=== PATIENT | female | born 1965 | race Asian ===

== ENCOUNTER 2018-10-15 12:17 | Emergency (ER) | payer BC, OTHER ==
[~2018-10-15] VITALS: Ht 149.9 cm; Wt 52.2 kg
[~2018-10-15 12:17] MED LIST: FOLI1TAB6 PO; IBP800T PO
--- OUTSIDE RECORDS SUMMARY | 2018-10-15 12:22 | XMS REPORT ---
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 Name Role Phone ARAM SONI Unavailable Unavailable PROBLEMS Unknown Problems ALLERGIES No Known Allergies ENCOUNTERS Encounter Location Date Diagnosis [facility] [id number], [place] [phone] Feb, [facility] [id number] [place] [phone] Aug, Dental examination Z01.20 [facility] [id number] [address] Jan, 2009 IMMUNIZATIONS No Known Immunizations SOCIAL HISTORY Never Assessed REASON FOR VISIT PLAN OF CARE Activity Details Follow Up ariel Reason:restore VITAL SIGNS Blood pressure systolic 121 mmHg 2017-09-01 Blood pressure diastolic 66 mmHg 2017-09-01 MEDICATIONS Unknown Medications RESULTS No Results PROCEDURES Procedure Date Ordered Result Body Site COMP ORAL EVALUATION - NEW/EST PT Sep 01, 2017 INTRAORL-PERIAPICAL 1 FILM 69042 Sep 01, 2017 TOPICAL FLUORIDE VARNISH Sep 01, 2017 Periodontal maint procedures Sep 01, 2017 INTRAORL-PERIAPICAL EA ADD FILM Sep 01, 2017 INTRAORL-PERIAPICAL EA ADD FILM Sep 01, 2017 PANORAMIC FILM SEE ALSO CODE 12071 Sep 01, 2017 BITEWINGS - FOUR FILMS Sep 01, 2017 INSTRUCTIONS MEDICATIONS ADMINISTERED No Known Medications
--- OUTSIDE RECORDS SUMMARY | 2018-10-15 12:22 | XMS REPORT | Continuity of Care Document ---
Author Author [facility] Organization [facility] Address Unknown Phone Unavailable Allergies Active Description Code Type Severity Reaction Onset Reported/Identified Relationship to Patient Clinical Status Yes No Known Drug Allergies [id number] Drug Allergy Unknown N/A 01/30/2012 Medications There is no data. Problems Date Dx Coded Attending Type Code Diagnosis Diagnosed By 07/09/2014 GLADYS MALONE DO Ot 788.1 07/20/2014 Ot 788.1 09/29/2014 GLADYS MALONE DO Ot V76.12 02/13/2015 GLADYS MALONE DO Ot V76.12 Procedures There is no data. Results There is no data. Encounters ACCT No. Visit Date/Time Discharge Status Pt. Type Provider Facility Loc./Unit Complaint [id number] 09/15/2014 11:04:00 09/15/2014 23:59:59 CLS Outpatient GLADYS MALONE DO [facility] RAD [id number] 04/10/2014 13:14:00 07/09/2014 00:01:00 DIS Outpatient GLADYS MALONE DO [facility] LAB [id number] 09/15/2013 09:55:00 09/15/2013 23:59:59 CLS Outpatient [id number] 07/27/2013 11:20:00 07/27/2013 23:59:59 CLS Outpatient [id number] 05/25/2013 09:37:00 05/25/2013 23:59:59 CLS Outpatient [id number] 07/10/2014 00:00:00 Document Registration [id number] 03/16/2018 09:30:00 03/16/2018 23:59:59 CLS Outpatient [facility]
--- OUTSIDE RECORDS SUMMARY | 2018-10-15 12:22 | XMS REPORT ---
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 Role Phone YASMIN HADLEY Unavailable PROBLEMS Unknown Problems ALLERGIES No Known Allergies ENCOUNTERS Encounter Location Date Diagnosis [facility] [id number], [place] [phone] Feb, Dental examination Z01.20 [facility] [id number] [place] [phone] Aug, Dental examination Z01.20 [facility] [id number] [address] Jan, IMMUNIZATIONS No Known Immunizations SOCIAL HISTORY Never Assessed REASON FOR VISIT elba/lost filling PLAN OF CARE Activity Details Follow Up prn Reason:6 mth. Recall VITAL SIGNS Blood pressure systolic 110 mmHg 2018-03-16 Blood pressure diastolic 65 mmHg 2018-03-16 MEDICATIONS Unknown Medications RESULTS No Results PROCEDURES Procedure Date Ordered Result Body Site LTD ORAL EVALUATION - PROBLEM FOCUS March 16, 2018 INTRAORL-PERIAPICAL 1 FILM 01984 March 16, 2018 BITEWING - SINGLE FILM March 16, 2018 INSTRUCTIONS MEDICATIONS ADMINISTERED No Known Medications
[2018-10-15] MEDS ORDERED: TAMIFLU (12:41)
[2018-10-15] MEDS ORDERED: ONDANSETRON 4 MG (ZOFRAN) ORAL DISSOLVE TAB PO ONE (13:00)
[2018-10-15 13:32] LABS: BASOPHILS % (AUTO) 0 % (0-10); EOSINOPHILS % (AUTO) 1 % (0-10); HEMATOCRIT 39 % (35-52); HEMOGLOBIN 12.9 G/DL (11.5-16.0); LYMPHOCYTES # (AUTO) 1.3 X 10^3 (1.0-4.0); LYMPHOCYTES % (AUTO) 38 % (12-44); MEAN CORPUSCULAR HEMOGLOBIN 28 PG (25-34); MEAN CORPUSCULAR HGB CONC 33 G/DL (32-36); MEAN CORPUSCULAR VOLUME 85 FL (80-99); MEAN PLATELET VOLUME 10.4 FL (7.4-10.4); MONOCYTES # (AUTO) 0.4 X 10^3 (0.0-1.0); MONOCYTES % (AUTO) 13 % (0-12); NEUTROPHILS # (AUTO) 1.6 X 10^3 (1.8-7.8); NEUTROPHILS % (AUTO) 48 % (42-75); PLATELET COUNT 201 10^3/uL (130-400); WHITE BLOOD COUNT 3.3 10^3/uL (4.3-11.0)
--- NOTE | 2018-10-15 13:36 | Diagnostic Imaging Report ---
INDICATION: Influenza. TIME OF EXAM: 01:29 p.m. COMPARISON: Correlation is made with prior study from 01/30/2012. FINDINGS: The heart size is normal. The pulmonary vascularity is unremarkable. The lungs are clear. No infiltrate, effusion or pneumothorax is detected. IMPRESSION: No acute cardiopulmonary process is detected. Dictated by: Dictated on workstation # [id number]
[2018-10-15 13:49] LABS: BUN/CREATININE RATIO 11; CALCIUM 9.4 MG/DL (8.5-10.1); CARBON DIOXIDE 27 MMOL/L (21-32); CHLORIDE 104 MMOL/L (98-107); CREATININE SERUM 0.71 MG/DL (0.60-1.30); GFR ESTIMATED > 60; GLUCOSE 100 MG/DL (70-105); SODIUM 142 MMOL/L (135-145)
--- NOTE | 2018-10-15 14:06 | ED General ---
General Chief Complaint: Cough/Cold/Flu Symptoms Stated Complaint: N/V;FEVER Nursing Triage Note: Ambulatory to triage. Pt reports being diagnosed by PCP on 10/13/18 with influenza A. Pt curretnly prescribed tamiflu and cephalexin. Pt c/o vomiting that began last night. Pt reports not being able to keep meds or anything down at this time. Pt reports periodic fever and chills. Pt c/o cough that causes pain in the lungs. Nursing Sepsis Screen: No Definite Risk Source of Information: Patient Exam Limitations: No Limitations History of Present Illness Date Seen by Provider: Oct 15, 2018 Time Seen by Provider: 14:05 Initial Comments To ER with nausea and vomiting. She was diagnosed with influenza A on 10/13/18. She was given Tamiflu and Keflex. She began vomiting last night and is unable to keep anything down. Fevers are gone but the cough persists. Timing/Duration: 1-2 Days Severity: Moderate Associated Systoms: Nausea/Vomiting Allergies and Home Medications Allergies Coded Allergies: No Known Drug Allergies (Unverified , 01/30/12) Home Medications Ibuprofen 800 Mg Tab, 800 MG PO Q8HR PRN Prescribed by: HARRY CROUCH on 08/23/12 1024 Patient Home Medication List Home Medication List Reviewed: Yes Review of Systems Review of Systems Constitutional: see HPI EENTM: see HPI Respiratory: see HPI, cough Cardiovascular: no symptoms reported Gastrointestinal: nausea, vomiting Genitourinary: no symptoms reported Musculoskeletal: no symptoms reported Skin: no symptoms reported Psychiatric/Neurological: No Symptoms Reported Hematologic/Lymphatic: No Symptoms Reported (that was) Past Xgvktex-Nsjigy-Rcinni Hx Patient Social History Recent Foreign Travel: No Contact w/Someone Who Travel: No Recent Infectious Disease Expo: No Recent Hopitalizations: No Past Medical History Surgeries: No Respiratory: No Cardiac: No Neurological: No Reproductive Disorders: No Gastrointestinal: No Musculoskeletal: No Endocrine: No Psychosocial: No Blood Disorders: No Physical Exam Vital Signs Vital Signs - First Documented 10/15/18 12:22 Temp 96.5 Pulse 90 Resp 13 B/P (MAP) 127/81 (96) Pulse Ox 100 O2 Delivery Room Air Capillary Refill : Less Than 3 Seconds Height, Weight, BMI Height: 4'11.00" Weight: 115lbs. oz. 52.197387cq; BMI Method:Stated General Appearance: No Apparent Distress, WD/WN Eyes: Bilateral Eye Normal Inspection, Bilateral Eye PERRL, Bilateral Eye EOMI Neck: Full Range of Motion, Normal Inspection Respiratory: Normal Breath Sounds, No Accessory Muscle Use, No Respiratory Distress Cardiovascular: Regular Rate, Rhythm, Normal Peripheral Pulses Gastrointestinal: Non Tender, Soft Neurologic/Psychiatric: Alert, Oriented x3 Skin: Normal Color, Warm/Dry Progress/Results/Core Measures Suspected Sepsis Recent Fever Within 48 Hours: Yes Infection Criteria Present: None New/Unexplained Altered Menta: No Sepsis Screen: No Definite Risk SIRS Temperature:96.5 Pulse: 90 Respiratory Rate: 13 Laboratory Tests 10/15/18 13:24: White Blood Count 3.3L Blood Pressure 127 /81 Mean: 96 Laboratory Tests 10/15/18 13:24: Creatinine 0.71, Platelet Count 201 Results/Orders Lab Results Laboratory Tests Test 10/15/18 13:24 Range/Units White Blood Count 3.3 L 4.3-11.0 10^3/uL Red Blood Count 4.62 4.35-5.85 10^6/uL Hemoglobin 12.9 11.5-16.0 G/DL Hematocrit 39 35-52 % Mean Corpuscular Volume 85 80-99 FL Mean Corpuscular Hemoglobin 28 25-34 PG Mean Corpuscular Hemoglobin Concent 33 32-36 G/DL Red Cell Distribution Width 14.0 10.0-14.5 % Platelet Count 201 130-400 10^3/uL Mean Platelet Volume 10.4 7.4-10.4 FL Neutrophils (%) (Auto) 48 42-75 % Lymphocytes (%) (Auto) 38 12-44 % Monocytes (%) (Auto) 13 H 0-12 % Eosinophils (%) (Auto) 1 0-10 % Basophils (%) (Auto) 0 0-10 % Neutrophils # (Auto) 1.6 L 1.8-7.8 X 10^3 Lymphocytes # (Auto) 1.3 1.0-4.0 X 10^3 Monocytes # (Auto) 0.4 0.0-1.0 X 10^3 Eosinophils # (Auto) 0.0 0.0-0.3 10^3/uL Basophils # (Auto) 0.0 0.0-0.1 10^3/uL Sodium Level 142 135-145 MMOL/L Potassium Level 4.0 3.6-5.0 MMOL/L Chloride Level 104 98-107 MMOL/L Carbon Dioxide Level 27 21-32 MMOL/L Anion Gap 11 5-14 MMOL/L Blood Urea Nitrogen 8 7-18 MG/DL Creatinine 0.71 0.60-1.30 MG/DL Estimat Glomerular Filtration Rate > 60 BUN/Creatinine Ratio 11 Glucose Level 100 70-105 MG/DL Calcium Level 9.4 8.5-10.1 MG/DL My Orders Orders - CASSY DEL VALLE APRN Cbc With Automated Diff (10/15/18 12:49) Basic Metabolic Panel (10/15/18 12:49) Chest Pa/Lat (2 View) (10/15/18 12:49) Ondansetron Oral Dissolve Tab (Zofran (10/15/18 13:00) Medications Given in ED Current Medications Medications Dose Ordered Sig/Ally Route Start Time Stop Time Status Last Admin Dose Admin Ondansetron HCl 8 mg ONCE ONCE PO 10/15/18 13:00 10/15/18 13:01 DC 10/15/18 13:18 8 MG Vital Signs/I&O 10/15/18 12:22 Temp 96.5 Pulse 90 Resp 13 B/P (MAP) 127/81 (96) Pulse Ox 100 O2 Delivery Room Air Capillary Refill : Less Than 3 Seconds Blood Pressure Mean: 96 Departure Impression Primary Impression: Medication side effect Additional Impression: Influenza A Disposition: 01 HOME, SELF-CARE Condition: Stable Departure-Patient Inst. Decision time for Depature: 14:08 Referrals: MATILDA GOLDSTEIN DO (PCP/Family) Primary Care Physician Patient Instructions: General (DC) Add. Discharge Instructions: 1. Stop the Tamiflu 2. Continue Tylenol and Motrin for any fevers or chills. You may continue the cephalexin. You should also start using the ondansetron nausea medication as needed. All discharge instructions reviewed with patient and/or family. Voiced understanding. Scripts Ondansetron (Ondansetron Odt) 8 Mg Tab.rapdis 8 MG PO Q6H PRN for NAUSEA/VOMITING-1ST LINE, #14 TAB Prov: CASSY DEL VALLE APRN 10/15/18 Work/School Note: Work Release Form Date Seen in the Emergency Department: Oct 15, 2018 Return to Work: Oct 17, 2018 CASSY DEL VALLE APRN Oct 15, 2018 14:06
[2018-10-15] MEDS ORDERED: ONDA8TAB13 PO (14:10)
[2018-10-15 14:25] VITALS: BP 125/77
== END 2018-10-15 14:25 | disposition home or self-care (01) ==
LOC: EDUNIT# 12:17 → ER 12:18
DX: R11.2 Nausea with vomiting, unspecified (principal); T36.1X5A Adverse effect of cephalosporins and other beta-lactam antibiotics, initial encounter; J10.1 Influenza due to other identified influenza virus with other respiratory manifestations
CPT/HCPCS: 36415; 71046; 80048; 85025